=== PATIENT | male | born 1965 | race Caucasian/White ===

== ENCOUNTER 2016-07-27 09:16 | Day surgery (SDC) | payer MEDICAID ==
[2016-07-27] MEDS ORDERED: Lactated Ringers 1,000 ML IV SCH (09:30)
[2016-07-27] MEDS ORDERED: Albuterol/Ipratropium 3.0-0.5 MG/3 ML Neb Soln NEB ONE (10:06)
[2016-07-27] MEDS ORDERED: Propofol 200 MG/20 ML SDV ONE (11:17)
[2016-07-27] MEDS ORDERED: fentaNYL 100 MCG/2 ML SDV ONE (11:17)
[2016-07-27] MEDS ORDERED: Midazolam 1 MG/ML 2 ML SDV ONE (11:17)
[2016-07-27 13:17] VITALS: BP 133/83
--- NOTE | 2016-07-27 13:46 | OR ---
DATE OF PROCEDURE: 07/27/2016 PREOPERATIVE DIAGNOSIS: Colon cancer screening. POSTOPERATIVE DIAGNOSIS: Unremarkable colonoscopy. PROCEDURE: Colonoscopy to the cecum. ANESTHESIA: IV anesthesia with monitored anesthesia care. INDICATION: This 51-year-old white male is referred for a colonoscopy for colon cancer screening. He has never had a colonoscopic exam. I counseled him for the procedure including risks and alternatives, and he gave his informed consent to proceed. DESCRIPTION OF PROCEDURE: The patient was placed in the left lateral decubitus position. IV anesthesia was administered by the Anesthesia Service. Time-out was held. A rectal exam was performed, which was unremarkable. The flexible video Olympus colonoscope was introduced through his anus, up his rectum, and out his colon all the way to the cecum. Once the cecum was reached, the scope was slowly withdrawn examining the mucosa throughout. No mucosal abnormalities were noted. The scope was retroflexed in the rectum with the distal rectum appearing unremarkable. The scope was straightened and removed. He tolerated the procedure well. Jacob Morales MD /[id number] KEIRY
== END 2016-07-27 13:05 | disposition home or self-care (01) ==
LOC: JP.SDS 09:16
PROVIDERS: ATTEND Surgery
DX: Z12.11 Encounter for screening for malignant neoplasm of colon (principal); I10 Essential (primary) hypertension; J45.909 Unspecified asthma, uncomplicated; F17.200 Nicotine dependence, unspecified, uncomplicated
CPT/HCPCS: 45378; J2250; J2704; J3010; J7120; J7620

== ENCOUNTER 2019-01-20 00:01 | Emergency (ER) | payer MEDICAID, OTHER ==
[2019-01-20] MEDS ORDERED: Famotidine 20 MG Tab PO ONE (00:17)
[2019-01-20] MEDS ORDERED: diphenhydrAMINE 25 MG Cap PO ONE (00:17)
--- NOTE | 2019-01-20 00:23 | EDM.PDOC ---
ED HPI GENERAL MEDICAL PROBLEM - General Chief Complaint: Allergic Reaction Stated Complaint: MEDICAL [facility]IA [facility] Time Seen by Provider: 01/20/19 00:10 Source of Information: Reports: Patient, EMS, Old Records History Limitations: Reports: No Limitations - History of Present Illness INITIAL COMMENTS - FREE TEXT/NARRATIVE: 53 yo male here with hives from home via EMS. Diphenhydramine 50 mg IV was given per EMS. Denies any difficulty breathing or swallowing. Had apparent low BP for a period as he nearly passed out and was helped to the floor by his . Has a hx of cashew allergy only. Ate fish(local caught), nepalese fries, and "a few beers" tonight only. Onset: Today Onset Date: 01/20/19 Onset Time: 23:20 Duration: Hour(s): (1+), Improving Location: Reports: Generalized Quality: Reports: Other (itchy) Severity: Moderate Improves with: Reports: Medication Worsens with: Reports: Other (uncertain) Context: Reports: Other (see HPI) Associated Symptoms: Reports: Rash. 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: IV/IO, Other Medication(s), See EMS Report - Related Data Allergies Allergy/AdvReac Type Severity Reaction Status Date / Time cashew nut Allergy Anaphylactic Verified 03/23/18 10:53 Shock Home Meds: Home Meds Albuterol [Ventolin HFA] 2 puff INH Q4HR PRN 07/25/16 [History] Aspirin [Adult Low Dose Aspirin EC] 81 mg PO BEDTIME 07/25/16 [History] Fluticasone/Salmeterol [Advair 250-50 Diskus] 1 dose INH BID 07/25/16 [History] Metoprolol Succinate [Toprol Xl] 100 mg PO BEDTIME 07/25/16 [History] Prednisone [IJD: Prednisone] 5 mg PO DAILY 07/25/16 [History] hydroCHLOROthiazide [Hydrochlorothiazide] 50 mg PO DAILY 07/25/16 [History] Allopurinol [Zyloprim] 100 mg PO DAILY 02/27/18 [History] predniSONE [Prednisone] 2 mg PO DAILY 02/27/18 [History] sulfaSALAzine [sulfaSALAzine DR] 1,000 mg PO BID 02/27/18 [History] Multivits,Ca,Min/Iron/FA/Lycop [Centrum Men's Tablet] 1 tab PO BEDTIME 03/23/18 [History] Etanercept [Enbrel] 50 mg SQ WEEKLY 01/20/19 [History] Omeprazole 20 mg PO DAILY 01/20/19 [History] Zinc Amino Acid Chelate [Zinc] 50 mg PO DAILY 01/20/19 [History] Past Medical History HEENT History: Reports: Impaired Vision Other HEENT History: wears glasses Cardiovascular History: Reports: Hypertension, SOB on Exertion Respiratory History: Reports: Asthma, SOB Musculoskeletal History: Reports: Other (See Below) Other Musculoskeletal History: unknown atypical inflammatory disease-patient was on enbrel. Neurological History: Reports: Migraines Psychiatric History: Reports: Addiction Endocrine/Metabolic History: Reports: Obesity/BMI 30+ Hematologic History: Reports: Anemia Other Hematologic History: anaplasmosis Immunologic History: Reports: Other (See Below) Other Immunologic History: inflamatory disease - Infectious Disease History Infectious Disease History: Reports: Mumps - Past Surgical History Respiratory Surgical History: Reports: None GI Surgical History: Reports: None Endocrine Surgical History: Reports: None Social & Family History - Caffeine Use Caffeine Use: Reports: Coffee ED ROS ALLERGIC REACTION - Review of Systems Review Of Systems: See Below Constitutional: Reports: No Symptoms HEENT: Reports: No Symptoms Respiratory: Reports: No Symptoms Cardiovascular: Reports: Lightheadedness (now better) Endocrine: Reports: No Symptoms GI/Abdominal: Reports: No Symptoms : Reports: No Symptoms Musculoskeletal: Reports: No Symptoms Skin: Reports: Pruritis, Rash, Erythema Neurological: Reports: No Symptoms ED EXAM GENERAL NO PERIP PULSE - Physical Exam Exam: See Below Exam Limited By: No Limitations General Appearance: Alert, WD/WN, No Apparent Distress, Other (appears older than stated age.) Eye Exam: Bilateral Eye: Normal Inspection Ears: Normal External Exam, Normal Canal, Hearing Grossly Normal, Normal TMs Nose: Normal Inspection, No Blood Throat/Mouth: Normal Inspection, Normal Lips, Normal Oropharynx, Normal Voice, No Airway Compromise Head: Atraumatic, Normocephalic Neck: Normal Inspection Respiratory/Chest: No Respiratory Distress, Lungs Clear, Normal Breath Sounds, No Accessory Muscle Use Cardiovascular: Regular Rate, Rhythm, No Edema Extremities: Normal Inspection Neurological: Alert, Oriented, CN II-XII Intact, Normal Cognition, No Motor/ Sensory Deficits Psychiatric: Normal Affect, Normal Mood Skin Exam: Warm, Dry, Intact, Erythema, Rash (hives diffusely). No: Normal Color, No Rash Course - Vital Signs Last Recorded V/S: Last Vital Signs Temp Pulse 102 H 01/20/19 00:48 Resp 16 01/20/19 00:48 BP 123/80 01/20/19 00:48 Pulse Ox 97 01/20/19 00:48 - Orders/Labs/Meds Meds: Medications Discontinued Medications Generic Name Dose Route Start Last Admin Trade Name Igor PRN Reason Stop Dose Admin Diphenhydramine HCl 25 mg 01/20/19 00:17 01/20/19 00:34 Benadryl PO 01/20/19 00:18 25 mg ONETIME ONE Administration Famotidine 40 mg 01/20/19 00:17 01/20/19 00:34 Pepcid PO 01/20/19 00:18 40 mg ONETIME ONE Administration - Re-Assessments/Exams Free Text/Narrative Re-Assessment/Exam: 01/20/19 01:10 Rash, hives, now gone after the additional tx in the ER. Departure - Departure Time of Disposition: 01:11 Disposition: Home, Self-Care 01 Condition: Good Clinical Impression: Hives - Discharge Information *PRESCRIPTION DRUG MONITORING PROGRAM REVIEWED*: No *COPY OF PRESCRIPTION DRUG MONITORING REPORT IN PATIENT ALEJANDRO: No Instructions: Hives, [id number] Referrals: Derek Shaw MD [Primary Care Provider] - Forms: ED Department Discharge Additional Instructions: Give diphenhydramine 50 mg every 4 hrs as needed for itching or hives. Return if worse. Be careful with fish and beer consumption as one of these could be what triggered tonight's allergic reaction. No driving when on diphenhydramine.
[2019-01-20 00:52] VITALS: BP 123/80; PULSE 102
== END 2019-01-20 01:25 | disposition home or self-care (01) ==
LOC: JP.ED 00:01
DX: L50.9 Urticaria, unspecified (principal); I10 Essential (primary) hypertension; J45.909 Unspecified asthma, uncomplicated; G43.909 Migraine, unspecified, not intractable, without status migrainosus; Z91.018 Allergy to other foods; Z79.82 Long term (current) use of aspirin; Z79.899 Other long term (current) drug therapy
CPT/HCPCS: 99282; A9270

== ENCOUNTER 2020-08-17 13:27 | Emergency (ER) | payer MEDICAID ==
[2020-08-17 13:44] VITALS: BP 134/83; PULSE 91
--- NOTE | 2020-08-17 14:09 | EDM.PDOC ---
ED HPI GENERAL MEDICAL PROBLEM - General Chief Complaint: Eye Problems Stated Complaint: LT EYE BLEEDING Time Seen by Provider: 08/17/20 14:03 Source of Information: Reports: Patient, Family, RN Notes Reviewed History Limitations: Reports: No Limitations - History of Present Illness INITIAL COMMENTS - FREE TEXT/NARRATIVE: 55-year-old gentleman presents emergency department today with bleeding out of his left eye he recently had surgery done about a week ago on the lower eyelid he coughed hard and has had some bleeding bleeding is controlled by the time he presents emergency department - Related Data Allergies Allergy/AdvReac Type Severity Reaction Status Date / Time cashew nut Allergy Anaphylactic Verified 08/17/20 13:37 Shock Home Meds: Home Meds Albuterol [Ventolin HFA] 2 puff INH Q4HR PRN 07/25/16 [History] Aspirin [Adult Low Dose Aspirin EC] 81 mg PO BEDTIME 07/25/16 [History] Fluticasone Propion/Salmeterol [Advair 250-50 Diskus] 1 dose INH BID 07/25/16 [History] Metoprolol Succinate [Toprol Xl] 100 mg PO BEDTIME 07/25/16 [History] hydroCHLOROthiazide [Hydrochlorothiazide] 50 mg PO DAILY 07/25/16 [History] allopurinoL [Zyloprim] 100 mg PO DAILY 02/27/18 [History] predniSONE [Prednisone] 8 mg PO DAILY 02/27/18 [History] sulfaSALAzine [sulfaSALAzine DR] 1,000 mg PO BID 02/27/18 [History] Multivit-Mins/Iron/Folic/Lycop [Centrum Men's Tablet] 1 tab PO BEDTIME 03/23/18 [History] Omeprazole 20 mg PO DAILY 01/20/19 [History] Zinc Amino Acid Chelate [Zinc] 50 mg PO DAILY 01/20/19 [History] Adalimumab [Humira] 40 mg SQ WEEKLY 08/17/20 [History] Amoxicillin/Clavulanate K [Augmentin 875-125 MG] 1 tab PO BID 08/17/20 [History] Pyridoxine HCl [Vitamin B-6] 50 mg PO DAILY 08/17/20 [History] Thiamine [Vitamin B-1] 100 mg PO BEDTIME 08/17/20 [History] Past Medical History HEENT History: Reports: Impaired Vision Other HEENT History: wears glasses Cardiovascular History: Reports: Hypertension, SOB on Exertion Respiratory History: Reports: Asthma, SOB Musculoskeletal History: Reports: Other (See Below) Other Musculoskeletal History: unknown atypical inflammatory disease-patient was on enbrel. Neurological History: Reports: Migraines Psychiatric History: Reports: Addiction Endocrine/Metabolic History: Reports: Obesity/BMI 30+ Hematologic History: Reports: Anemia Other Hematologic History: anaplasmosis Immunologic History: Reports: Other (See Below) Other Immunologic History: inflamatory disease - Infectious Disease History Infectious Disease History: Reports: Mumps - Past Surgical History Head Surgeries/Procedures: Reports: None HEENT Surgical History: Reports: Eye Surgery, Tonsillectomy Cardiovascular Surgical History: Reports: None Respiratory Surgical History: Reports: None GI Surgical History: Reports: None Endocrine Surgical History: Reports: None Neurological Surgical History: Reports: None Musculoskeletal Surgical History: Reports: None Dermatological Surgical History: Reports: None Social & Family History - Family History Family Medical History: Unobtainable - Tobacco Use Tobacco Use Status *Q: Current Every Day Tobacco User Years of Tobacco use: 35 Packs/Tins Daily: 1 Used Tobacco, but Quit: No Second Hand Smoke Exposure: No - Caffeine Use Caffeine Use: Reports: Coffee Caffeine Use Comment: 10 cups of coffee per day - Alcohol Use Days Per Week of Alcohol Use: 7 Number of Drinks Per Day: 6 Total Drinks Per Week: 42 - Recreational Drug Use Recreational Drug Use: No ED ROS GENERAL - Review of Systems Review Of Systems: See Below Constitutional: Reports: No Symptoms Skin: Reports: Wound ED EXAM GENERAL W FULL EYE - Physical Exam Exam: See Below Text/Narrative:: Surgical wound is clean dry and intact there is an Esher that is formed over the surgical wound there is no active bleeding extraocular eye movements are intact pupils equal round reactive to light Exam Limited By: No Limitations General Appearance: Alert, WD/WN, No Apparent Distress Course - Vital Signs Last Recorded V/S: Last Vital Signs Temp 98.2 F 08/17/20 13:44 Pulse 91 08/17/20 13:44 Resp 16 08/17/20 13:44 BP 134/83 08/17/20 13:44 Pulse Ox 97 08/17/20 13:44 Departure - Departure Time of Disposition: 14:09 Disposition: Home, Self-Care 01 Condition: Fair Clinical Impression: Postoperative bleeding from incision - Discharge Information Referrals: Derek Shaw MD [Primary Care Provider] - Additional Instructions: Keep your follow-up appointment with your surgeon tomorrow call or return to the emergency department worsening of symptoms Sepsis Event Note (ED) - Evaluation Sepsis Screening Result: No Definite Risk - Focused Exam Vital Signs: Vital Signs Temp Pulse Resp BP Pulse Ox 08/17/20 13:44 98.2 F 91 16 134/83 97 08/17/20 13:43 98.2 F 91 16 134/83 97 - Assessment/Plan Plan: Assessment Acuity = acute Site and laterality = postsurgical bleeding Etiology = probably related to the cough Manifestations = none Location of injury = Home Lab values = none Plan He has a follow-up appointment with his appeals assistant tomorrow This note was dictated using Ace[employer] voice recognition software please call with any questions on syntax or grammar.
== END 2020-08-17 14:21 | disposition home or self-care (01) ==
LOC: JP.ED 13:27
DX: H59.312 Postprocedural hemorrhage of left eye and adnexa following an ophthalmic procedure (principal); I10 Essential (primary) hypertension; J45.909 Unspecified asthma, uncomplicated; E66.9 Obesity, unspecified; Z68.26 Body mass index [BMI] 26.0-26.9, adult; Z91.018 Allergy to other foods; Z79.82 Long term (current) use of aspirin; Z79.899 Other long term (current) drug therapy; Z72.0 Tobacco use
CPT/HCPCS: 99282; 99283

== ENCOUNTER 2021-10-13 17:37 | Emergency (ER) | payer MEDICAID ==
[2021-10-13 18:51] LABS: ESTIMATED GFR > 60 (>60)
[2021-10-13 20:22] VITALS: BP 144/88; PULSE 84
== END 2021-10-13 20:24 | disposition home or self-care (01) ==
LOC: JP.ED 17:37
DX: L03.211 Cellulitis of face (principal); J45.909 Unspecified asthma, uncomplicated; I10 Essential (primary) hypertension; F17.210 Nicotine dependence, cigarettes, uncomplicated; E66.9 Obesity, unspecified; Z68.25 Body mass index [BMI] 25.0-25.9, adult; Z79.899 Other long term (current) drug therapy; Z91.012 Allergy to eggs; Z91.011 Allergy to milk products; Z91.018 Allergy to other foods
CPT/HCPCS: 36415; 80053; 85025; 85651; 86140; 99283

== ENCOUNTER 2025-02-26 08:13 | Emergency (ER) | payer MEDICAID, OTHER ==
[2025-02-26 08:58] VITALS: BP 135/78; PULSE 98
[2025-02-26 09:57] LABS: BASOPHILS PERCENT AUTO 0.1 % (0.1-1.3); EOSINOPHILS PERCENT AUTO 0.0 % (0.0-5.4); IMMATURE GRAN ABSOLUTE AUTO 0.42 K/uL (0.00-0.23); IMMATURE GRAN PERCENT AUTO 3.1 % (0.0-0.7); LYMPHOCYTES ABSOLUTE AUTO 0.85 K/uL (0.8-3.3); LYMPHOCYTES PERCENT AUTO 6.3 % (11.4-47.7); MONOCYTES ABSOLUTE AUTO 1.72 K/uL (0.20-0.90); MONOCYTES PERCENT AUTO 12.7 % (3.3-12.6); NEUTROPHILS ABSOLUTE AUTO 10.50 K/uL (1.0-7.6); NEUTROPHILS PERCENT AUTO 77.8 % (40.0-78.1); PLATELET COUNT,PLT 189 K/uL (130-375); RED BLOOD CELL COUNT 3.04 M/uL (4.14-5.76); WHITE BLOOD CELL COUNT,WBC 13.5 K/uL (3.2-11.0)
[2025-02-26 10:00] LABS: BASOPHILS ABSOLUTE AUTO 0.02 K/uL (0.00-0.10); EOSINOPHILS ABSOLUTE AUTO 0.00 K/uL (0.00-0.40)
== END 2025-02-26 10:55 | disposition home or self-care (01) ==
LOC: JP.ED 08:13
DX: L02.214 Cutaneous abscess of groin (principal); I10 Essential (primary) hypertension; E66.9 Obesity, unspecified; F17.200 Nicotine dependence, unspecified, uncomplicated; Z91.0120 Allergy to eggs, unspecified; Z91.018 Allergy to other foods; Z91.0110 Allergy to milk products, unspecified; Z79.899 Other long term (current) drug therapy; Z68.24 Body mass index [BMI] 24.0-24.9, adult
CPT/HCPCS: 36415; 85025; 99283

== ENCOUNTER 2025-03-19 09:24 | Emergency (ER) | payer MEDICAID, OTHER ==
[2025-03-19] MEDS ORDERED: Sodium Chloride 0.9% 10 ML Syringe FLUSH PRN (10:22)
[2025-03-19 10:54] LABS: LACTIC ACID 1.3 mmol/L (0.4-2.0)
[2025-03-19 10:59] LABS: A/G RATIO 0.4 (1.2-2.2); ALANINE AMINOTRANSFERASE,ALT 24 U/L (12-78); ASPARTATE AMNIOTRANSFERASE,AST 25 U/L (15-37); BILIRUBIN TOTAL 0.3 mg/dL (0.2-1.0); BLOOD UREA NITROGEN,BUN 9 mg/dL (7-18); CARBON DIOXIDE,CO2 28 mmol/L (21-32); CHLORIDE,CL 89 mmol/L (100-108); CREATININE 0.7 mg/dL (0.8-1.3); EST CRCL DRUG DOSING (CG) 97.41 mL/min; ESTIMATED GFR 107 mL/min (>60); GLUCOSE RANDOM 107 mg/dL (74-106); POTASSIUM,K 3.9 mmol/L (3.6-5.2); PROTEIN TOTAL,TP 8.2 g/dL (6.4-8.2); SODIUM,NA 126 mmol/L (140-148)
[2025-03-19] MEDS: Iopamidol 612 MG/ML 100 ML Bottle IV SCH (11:11)
[2025-03-19 11:43] LABS: PLATELET COUNT,PLT 264 K/uL (130-375); RED BLOOD CELL COUNT 2.68 M/uL (4.14-5.76); WHITE BLOOD CELL COUNT,WBC 4.4 K/uL (3.2-11.0)
[2025-03-19 12:27] LABS: ATYPICAL LYMPHOCYTES FEW; LYMPHOCYTES ABSOLUTE MAN 1.01 K/uL (0.8-3.3); LYMPHOCYTES PERCENT MAN 23 % (24-44); METAMYELOCYTE ABSOLUTE MAN 0.04 K/uL; METAMYELOCYTE PERCENT MAN 1 %; MONOCYTES ABSOLUTE MAN 1.19 K/uL (0.20-0.90); MONOCYTES PERCENT MAN 27 % (2-6); NEUTROPHILS ABSOLUTE MAN 2.16 K/uL (1.0-7.6); NRBC MANUAL 1; SEG NEUTROPHILS PERCENT MAN 49 % (36-66)
[2025-03-19 13:01] LABS: APPEARANCE,URINE CLEAR (CLEAR); GLUCOSE,URINE NEGATIVE (NEGATIVE); OCCULT BLOOD,URINE SMALL (NEGATIVE)
[2025-03-19 13:08] LABS: SQUAMOUS EPITHELIAL CELLS,UR NOT SEEN /HPF; UROTHELIAL CELLS,URINE NOT SEEN /HPF
[2025-03-19 13:52] VITALS: BP 147/88; PULSE 98
[2025-03-19 14:38] LABS: CORONAVIRUS COVID-19 NAA NEGATIVE (NEGATIVE); INFLUENZA A NAA NEGATIVE (NEGATIVE); INFLUENZA B NAA NEGATIVE (NEGATIVE); RESPIRATORY SYNCYTIAL VIR NAA NEGATIVE (NEGATIVE)
== END 2025-03-19 15:15 | disposition home or self-care (01) ==
LOC: JP.ED 09:24
DX: J44.1 Chronic obstructive pulmonary disease with (acute) exacerbation (principal); I10 Essential (primary) hypertension; E66.9 Obesity, unspecified; F17.200 Nicotine dependence, unspecified, uncomplicated; Z79.899 Other long term (current) drug therapy; Z91.0110 Allergy to milk products, unspecified; Z91.0120 Allergy to eggs, unspecified; Z68.21 Body mass index [BMI] 21.0-21.9, adult
CPT/HCPCS: 36415; 71260; 71260-26; 74177; 74177-26; 80053; 81001; 83605; 84484; 85025; 87040; 87637; 96365; 96367; 99285-25; J0696; J3373; J7050; J7120; Q9967